=== PATIENT | female | born 1955 | race Caucasian/White ===

== ENCOUNTER 2019-08-30 09:39 | Outpatient (CLI) | payer BC ==
[2019-08-30] VITALS (22 sets, daily range): BP systolic 107–136; BP diastolic 69–95
== END 2019-08-30 23:59 | disposition home or self-care (01) ==
LOC: CARD DIAG 09:39
PROVIDERS: ATTEND Internal Medicine Cardiovascular Disease
DX: R55 Syncope and collapse (principal); F17.200 Nicotine dependence, unspecified, uncomplicated
CPT/HCPCS: 93660